=== PATIENT | male | born 1995 | race Caucasian/White ===

== ENCOUNTER 2018-03-31 22:23 | Inpatient (IN) | payer BC ==
--- NOTE | 2018-03-31 23:56 | EDM.PDOC ---
ED HPI GENERAL MEDICAL PROBLEM - General Chief Complaint: Abdominal Pain Stated Complaint: ABD PAIN Time Seen by Provider: 03/31/18 23:54 Source of Information: Reports: Patient History Limitations: Reports: No Limitations - History of Present Illness INITIAL COMMENTS - FREE TEXT/NARRATIVE: pt arrived with pain in the epigastric area and rt upper quadrant. He states this started right after eating. t Onset: Today Duration: Hour(s): Location: Reports: Abdomen Associated Symptoms: Reports: No Other Symptoms Abdomen Pain Score (Numeric/FACES): 6 - Related Data Allergies Allergy/AdvReac Type Severity Reaction Status Date / Time No Known Allergies Allergy Verified 03/31/18 23:26 Home Meds: Home Meds NK [No Known Home Meds] 03/31/18 [History] Social & Family History - Tobacco Use Smoking Status *Q: Never Smoker Second Hand Smoke Exposure: No - Caffeine Use Caffeine Use: Reports: Soda, Tea - Recreational Drug Use Recreational Drug Use: No ED ROS GENERAL - Review of Systems Review Of Systems: See Below Constitutional: Reports: Malaise, Decreased Appetite HEENT: Reports: No Symptoms Respiratory: Reports: No Symptoms Cardiovascular: Reports: No Symptoms Endocrine: Reports: No Symptoms GI/Abdominal: Reports: Abdominal Pain, Constipation, Other (pt has not been having regular stools. ) : Reports: No Symptoms Musculoskeletal: Reports: No Symptoms Skin: Reports: No Symptoms Neurological: Reports: No Symptoms ED EXAM, GI/ABD - Physical Exam Exam: See Below Text/Narrative:: pt had a cute onset of pain in the mid rt abdoman which may have moved down slightly. Exam Limited By: No Limitations General Appearance: Alert, Moderate Distress Ears: Normal TMs Nose: Normal Inspection Throat/Mouth: Normal Inspection Head: Atraumatic Neck: Normal Inspection Respiratory/Chest: No Respiratory Distress Cardiovascular: Regular Rate, Rhythm GI/Abdominal Exam: Tender, Other (pt has rt mid to lower abdomanal tenderness) (Male) Exam: Deferred Rectal (Males) Exam: Deferred Back Exam: Normal Inspection Extremities: Normal Inspection Neurological: Alert, Oriented, Normal Cognition Psychiatric: Normal Affect Course - Vital Signs Last Recorded V/S: Last Vital Signs Temp 37.4 C 04/01/18 02:51 Pulse 62 03/31/18 23:32 Resp 16 04/01/18 02:51 BP 119/62 04/01/18 02:51 Pulse Ox 99 04/01/18 02:51 - Orders/Labs/Meds Orders: Active Orders 24 hr Category Date Time Status Abdomen Pelvis w Cont [CT] Stat Exams 04/01/18 01:06 Taken Abdomen Series w Chest 1V [CR] Urgent Exams 03/31/18 23:54 Taken UA W/MICROSCOPIC [URIN] Urgent Lab 04/01/18 00:37 Ordered Sodium Chloride 0.9% [Normal Saline] 1,000 ml Med 04/01/18 02:00 Active IV ASDIRECTED Sodium Chloride 0.9% [Normal Saline] 81 ml Med 04/01/18 01:30 Active IV ASDIRECTED Medication Orders Sodium Chloride (Normal Saline) 81 mls @ 3.5 mls/sec IV ASDIRECTED CATRACHO Last Admin: 04/01/18 01:48 Dose: 3.5 mls/sec Sodium Chloride (Normal Saline) 1,000 mls @ 999 mls/hr IV ASDIRECTED CATRACHO Last Admin: 04/01/18 02:46 Dose: 999 mls/hr Labs: Laboratory Tests 03/31/18 03/31/18 03/31/18 Range/Units 00:04 00:04 00:04 WBC 21.6 H (4.5-11.0) K/uL RBC 5.22 (4.30-5.90) M/uL Hgb 14.7 (12.0-15.0) g/dL Hct 43.4 (40.0-54.0) % MCV 83 (80-98) fL MCH 28 (27-31) pg MCHC 34 (32-36) % Plt Count 250 (150-400) K/uL Neut % (Auto) 87 H (36-66) % Lymph % (Auto) 7 L (24-44) % [place] % (Auto) 6 (2-6) % Eos % (Auto) 1 L (2-4) % Baso % (Auto) 0 (0-1) % Sodium 137 L (140-148) mmol/L Potassium 4.1 (3.6-5.2) mmol/L Chloride 102 (100-108) mmol/L Carbon Dioxide 28 (21-32) mmol/L Anion Gap 11.1 (5.0-14.0) mmol/L BUN 13 (7-18) mg/dL Creatinine 1.3 (0.8-1.3) mg/dL Est Cr Clr Drug Dosing 81.79 mL/min Estimated GFR (MDRD) > 60 (>60) Glucose 142 H (74-106) mg/dL Calcium 8.9 (8.5-10.1) mg/dL Total Bilirubin 0.4 (0.2-1.0) mg/dL AST 15 (15-37) U/L ALT 22 (12-78) U/L Alkaline Phosphatase 82 (46-116) U/L C-Reactive Protein 0.44 H (0.0-0.3) mg/dL Total Protein 7.1 (6.4-8.2) g/dL Albumin 3.8 (3.4-5.0) g/dL Globulin 3.3 (2.3-3.5) g/dL Albumin/Globulin Ratio 1.2 (1.2-2.2) Lipase 64 L (73-393) U/L Urine Color Urine Appearance Urine pH (4.5-8.0) Ur Specific [place] (1.008-1.030) Urine Protein (NEGATIVE) mg/dL Urine Glucose (UA) (NEGATIVE) mg/dL Urine Ketones (NEGATIVE) mg/dL Urine Occult Blood (NEGATIVE) Urine Nitrite (NEGAITVE) Urine Bilirubin (NEGATIVE) Urine Urobilinogen (NORMAL) mg/dL Ur Leukocyte Esterase (NEGATIVE) Urine RBC (0-5) Urine WBC (0-5) Ur Epithelial Cells Amorphous Sediment Urine Bacteria Urine Mucus 04/01/18 Range/Units 00:37 WBC (4.5-11.0) K/uL RBC (4.30-5.90) M/uL Hgb (12.0-15.0) g/dL Hct (40.0-54.0) % MCV (80-98) fL MCH (27-31) pg MCHC (32-36) % Plt Count (150-400) K/uL Neut % (Auto) (36-66) % Lymph % (Auto) (24-44) % [place] % (Auto) (2-6) % Eos % (Auto) (2-4) % Baso % (Auto) (0-1) % Sodium (140-148) mmol/L Potassium (3.6-5.2) mmol/L Chloride (100-108) mmol/L Carbon Dioxide (21-32) mmol/L Anion Gap (5.0-14.0) mmol/L BUN (7-18) mg/dL Creatinine (0.8-1.3) mg/dL Est Cr Clr Drug Dosing mL/min Estimated GFR (MDRD) (>60) Glucose (74-106) mg/dL Calcium (8.5-10.1) mg/dL Total Bilirubin (0.2-1.0) mg/dL AST (15-37) U/L ALT (12-78) U/L Alkaline Phosphatase (46-116) U/L C-Reactive Protein (0.0-0.3) mg/dL Total Protein (6.4-8.2) g/dL Albumin (3.4-5.0) g/dL Globulin (2.3-3.5) g/dL Albumin/Globulin Ratio (1.2-2.2) Lipase (73-393) U/L Urine Color Yellow Urine Appearance Clear Urine pH 7.0 (4.5-8.0) Ur Specific [place] 1.010 (1.008-1.030) Urine Protein Negative (NEGATIVE) mg/dL Urine Glucose (UA) Normal (NEGATIVE) mg/dL Urine Ketones Negative (NEGATIVE) mg/dL Urine Occult Blood Negative (NEGATIVE) Urine Nitrite Negative (NEGAITVE) Urine Bilirubin Negative (NEGATIVE) Urine Urobilinogen Normal (NORMAL) mg/dL Ur Leukocyte Esterase Negative (NEGATIVE) Urine RBC 0-5 (0-5) Urine WBC 0-5 (0-5) Ur Epithelial Cells Rare Amorphous Sediment Not seen Urine Bacteria Few Urine Mucus Not seen Meds: Medications Generic Name Dose Route Start Last Admin Trade Name Freq PRN Reason Stop Dose Admin Sodium Chloride 81 mls @ 3.5 mls/sec 04/01/18 01:30 04/01/18 01:48 Normal Saline IV 3.5 mls/sec ASDIRECTED CATRACHO Administration Sodium Chloride 1,000 mls @ 999 mls/hr 04/01/18 02:00 04/01/18 02:46 Normal Saline IV 999 mls/hr ASDIRECTED CATRACHO Administration Discontinued Medications Generic Name Dose Route Start Last Admin Trade Name Freq PRN Reason Stop Dose Admin Iopamidol 135 ml 04/01/18 01:30 04/01/18 01:48 Isovue-300 (61%) IV 150 ml . DIRECTED CATRACHO Administration Ondansetron HCl 4 mg 04/01/18 02:27 Zofran IVPUSH 04/01/18 02:28 ONETIME ONE Sodium Chloride 10 ml 04/01/18 01:29 04/01/18 01:48 Saline Flush FLUSH 04/01/18 01:30 10 ml ONETIME ONE Administration - Re-Assessments/Exams Free Text/Narrative Re-Assessment/Exam: 04/01/18 01:51 pt was found to have a 21,000 wbc. His other labs are ok. His crp is .44. He does admit to being constipated. 04/01/18 03:10 cat scan shows a early appendicitis. Departure - Departure Time of Disposition: 03:08 Disposition: Admitted As Inpatient 68 Condition: Fair Clinical Impression: Appendicitis - Discharge Information Referrals: PCP,None [Primary Care Provider] - Forms: ED Department Discharge Care Plan Goals: admit to Dr Peterson. - My Orders Last 24 Hours: My Active Orders 03/31/18 23:54 Abdomen Series w Chest 1V [CR] Urgent 04/01/18 00:37 UA W/MICROSCOPIC [URIN] Urgent 04/01/18 01:06 Abdomen Pelvis w Cont [CT] Stat 04/01/18 01:30 Sodium Chloride 0.9% [Normal Saline] 81 ml IV ASDIRECTED 04/01/18 02:00 Sodium Chloride 0.9% [Normal Saline] 1,000 ml IV ASDIRECTED - Assessment/Plan Last 24 Hours: My Active Orders 03/31/18 23:54 Abdomen Series w Chest 1V [CR] Urgent 04/01/18 00:37 UA W/MICROSCOPIC [URIN] Urgent 04/01/18 01:06 Abdomen Pelvis w Cont [CT] Stat 04/01/18 01:30 Sodium Chloride 0.9% [Normal Saline] 81 ml IV ASDIRECTED 04/01/18 02:00 Sodium Chloride 0.9% [Normal Saline] 1,000 ml IV ASDIRECTED
[2018-04-01] MEDS ORDERED: Sodium Chloride 0.9% 10 ML Syringe FLUSH ONE (01:29)
[2018-04-01] MEDS ORDERED: Iopamidol 612 MG/ML 150 ML Bottle IV SCH (01:30)
[2018-04-01] MEDS ORDERED: Sodium Chloride 0.9% 1,000 ML IV SCH (02:00)
[2018-04-01] MEDS ORDERED: Ondansetron 4 MG/2 ML SDV IVPUSH ONE (02:27)
[2018-04-01] MEDS ORDERED: Ondansetron 4 MG/2 ML SDV IVPUSH PRN (03:40)
[2018-04-01] MEDS ORDERED: Scopolamine 1.5 MG Transdermal Patch TOP PRN (03:40)
[2018-04-01] MEDS ORDERED: Promethazine 25 MG/ML SDV IV PRN (03:41)
[2018-04-01] MEDS ORDERED: Nicotine 14 MG/24 Hr Patch TRDERM PRN (03:43)
[2018-04-01] MEDS ORDERED: diphenhydrAMINE 50 MG/ML SDV IVPUSH PRN (03:43)
[2018-04-01] MEDS ORDERED: Morphine 4 MG/ML Syringe IVPUSH PRN (03:47)
[2018-04-01] MEDS ORDERED: fentaNYL 100 MCG/2 ML SDV IV PRN (03:48)
[2018-04-01] MEDS: Sodium Chloride 0.9% 1,000 ML IV PRN ×3 (04:04→18:33)
[2018-04-01] MEDS ORDERED: Piperacillin/Tazobactam 4.5 GM Vial ONE (04:23)
[2018-04-01] MEDS ORDERED: Sodium Chloride 0.9% 100 ML ONE (04:24)
[2018-04-01] MEDS: Piperacillin/Tazobactam/Dext 4.5 GM in Premix Bag 1 BAG IV SCH ×3 (04:35→19:44)
[2018-04-01] MEDS ORDERED: Bupivacaine 0.5%/EPINEPHrine 1:200,000 50 ML MDV ONE (06:56)
[2018-04-01] MEDS ORDERED: fentaNYL 250 MCG/5 ML SDV ONE (07:12)
[2018-04-01] MEDS ORDERED: Dexamethasone 4 MG/ML SDV ONE (07:13)
[2018-04-01] MEDS ORDERED: Rocuronium 50 MG/5 ML Vial ONE (07:13)
[2018-04-01] MEDS ORDERED: Ondansetron 4 MG/2 ML SDV ONE (07:13)
[2018-04-01] MEDS ORDERED: Neostigmine Methylsulfate 1 MG/ML 5 ML Syringe ONE (07:13)
[2018-04-01] MEDS ORDERED: Propofol 200 MG/20 ML SDV ONE (07:13)
[2018-04-01] MEDS ORDERED: Glycopyrrolate 0.2 MG/ML 5 ML MDV ONE (07:13)
[2018-04-01] MEDS ORDERED: diphenhydrAMINE 25 MG Cap PO PRN (07:48)
--- NOTE | 2018-04-01 09:44 | OR ---
DATE OF PROCEDURE: 04/01/2018 PROCEDURE: Laparoscopic appendectomy. FINDINGS: Appendicitis, non-ruptured. No evidence of abscess. COMPLICATIONS: None. [employer]MENT [employer]: None. PREOPERATIVE DIAGNOSIS: Appendicitis. POSTOPERATIVE DIAGNOSIS: Appendicitis. ANESTHESIA: General/local. RISKS: Risks, benefits, alternatives, and limitations including, but not limited to infection, bleeding, injury to abdominal structures, requirement for open surgery, cardiovascular event, and other risks not listed here were explained to the patient, who wished to proceed. PROCEDURE IN DETAIL: The patient was placed in the supine position after being prepped and draped. A supraumbilical curvilinear incision was made. A Veress needle was used to enter the abdomen without abnormality and a drop test was performed without abnormality. The abdomen was subsequently insufflated, and this was followed by an Optiview trocar. Two additional 5 mm ports were also entered under direct visualization in midline abdomen and in the upper right quadrant. The appendix was readily identified. It was noted to be consistent with appendicitis, it was not ruptured, and no abscess was noted. This would be transected with a single-load grier stapler. This was removed using a bag. The bag did not rupture. The transection site was inspected for abnormalities and none were noted. No bleeding was noted. The abdomen was subsequently irrigated with 1 L of irrigation and as much irrigant as possible was removed. The entrance site was inspected for enterotomy and none was noted. The air was removed. The wounds were thoroughly irrigated and closed with 3-0 Vicryl, 4-0 Vicryl and Dermabond. The patient tolerated the procedure well. Forest Peterson MD /[id number]
--- NOTE | 2018-04-01 09:47 | CONS ---
DATE OF SERVICE: 04/01/2018 REFERRING PHYSICIAN: CONSULTING PHYSICIAN: Forest Peterson MD REASON FOR CONSULTATION: Abdominal pain. HISTORY OF PRESENT ILLNESS: This is a pleasant 22-year-old male who developed about a 12- hour history of right lower quadrant abdominal pain associated with mild nausea. No vomiting, shortness of breath or chest pain. PAST SURGICAL HISTORY: None except for wisdom teeth extraction. PAST MEDICAL HISTORY: None. SOCIAL HISTORY: Does not smoke. FAMILY HISTORY: Noncontributory. REVIEW OF SYSTEMS: GENERAL: No concerns. HEENT: No symptoms. CARDIOVASCULAR: No history of myocardial infarction. RESPIRATORY: No history of shortness of breath. GI: No changes. The remainder of systems was reviewed and negative. PHYSICAL EXAMINATION: VITAL SIGNS: Stable. GENERAL: The patient is appropriate for condition. HEENT: Pupils are equal. NECK: Supple. LUNGS: Clear. CARDIOVASCULAR: Regular rhythm and rate. ABDOMEN: Pain with palpation on the right lower quadrant. No rebound. No guarding. EXTREMITIES: Full range of motion. Strength 5/5. NEUROLOGICAL: Oriented x3. PSYCH: No gross depression. IMAGING STUDIES: I did review a CT scan, which shows appendicitis. ASSESSMENT AND PLAN: Appendicitis. To the operating room for laparoscopic appendectomy. We discussed risks, benefits, alternatives, and limitations including but not limited to infection, bleeding, perforation, injury to abdominal structures, open surgery, and other risks not listed here. The patient understands the risks and wishes to proceed. Forest Peterson MD /[id number]
--- NOTE | 2018-04-01 11:43 | CR ---
Abdomen Series w Chest 1V CLINICAL HISTORY: Abdominal pain FINDINGS: Lung hartley are clear. No free air is seen. Small intestinal gas pattern is nonacute. There is moderate retained stool throughout the colon IMPRESSION: Moderate fecal retention Nonacute intestinal gas pattern
[2018-04-01] MEDS ORDERED: Acetaminophen/HYDROcodone 325-5 MG Tab PO PRN (15:59)
[2018-04-01] MEDS: Ibuprofen 600 MG Tab PO PRN (16:17)
[2018-04-02] MEDS: Piperacillin/Tazobactam/Dext 4.5 GM in Premix Bag 1 BAG IV SCH (03:37)
[2018-04-02] MEDS: Ibuprofen 600 MG Tab PO PRN (07:33)
--- NOTE | 2018-04-02 09:26 | PN ---
DATE OF SERVICE: 04/02/2018 SUBJECTIVE: The patient is doing very well. Pain is well controlled. No nausea, vomiting, shortness of breath or chest pain. OBJECTIVE: VITAL SIGNS: Stable. He is afebrile. CARDIOVASCULAR: Regular rhythm and rate. RESPIRATORY: Lungs are clear to auscultation bilaterally. ABDOMEN: Incisions healing well. No signs of cellulitis or infection. ASSESSMENT: Status post laparoscopic appendectomy. PLAN: The patient will be discharged today. Please see discharge summary for details. Forest Peterson MD /[id number]
--- NOTE | 2018-04-02 09:37 | DISCH ---
DISCHARGE DIAGNOSIS: Status post laparoscopic appendectomy. SUMMARY OF HOSPITAL COURSE: Pleasant 22-year-old male who is seen with subsequent diagnosis of right lower quadrant abdominal pain and appendicitis. The patient underwent uneventful laparoscopic appendectomy. This was not ruptured. This was consistent with appendicitis. No abscess was noted. The abdomen was washed out. The procedure was completed. The patient tolerated the procedure very well. On postoperative day 1, his pain was 0 to 1 out of 10. No nausea, vomiting, shortness of breath, or chest pain. He was ambulating without difficulty, tolerating diet and passing gas. Follow up with [facility]. DISCHARGE MEDICATIONS: Same medications but include [place] for pain. ACTIVITY: No lifting greater than 30 pounds for 30 days.
== END 2018-04-02 10:21 | disposition home or self-care (01) | DRG 225 ==
LOC: JP.ED 22:23 → JP.MS 04-01 03:27
PROVIDERS: ADMIT Surgery; ATTEND Surgery
PROC: 0DTJ4ZZ Resection of Appendix, Percutaneous Endoscopic Approach (ICD-10-PCS; principal; 2018-04-01)
DX: K37 Unspecified appendicitis (principal)
CPT/HCPCS: 36415; 74022; 74022-26; 74177; 80048; 80053; 81001; 83690; 85025; 85027; 86140; 96360; 99285-25; A9270-GY; J1100; J2270; J2405; J2543; J2704; J2710; J3010; J3490; J7030; J7050